=== PATIENT | female | born 1940 | race Caucasian/White ===

== ENCOUNTER 2018-03-25 23:33 | Emergency (ER) | payer MEDICARE ==
[~2018-03-25] VITALS: Ht 160 cm; Wt 61.7 kg
[2018-03-25 23:50] VITALS: BP 151/56
[2018-03-26] MEDS ORDERED: ACETAMINOPHEN ES 500 MG TABLET PO ONE (01:00)
[2018-03-26] MEDS ORDERED: CEPHALEXIN MONOHYDRATE 500 MG CAPSULE PO ONE ×2 (01:00→01:25)
[2018-03-26] MEDS ORDERED: LIDOCAINE VISCOUS 2% UD 15 ML UDC MM ONE (01:00)
[2018-03-26] MEDS ORDERED: LIDOCAINE 2% JEL UROJET 10 ML MM ONE (01:06)
[2018-03-26] MEDS ORDERED: ACETAMINOPHEN ES 500 MG TABLET ONE (01:25)
== END 2018-03-26 02:10 | disposition home or self-care (01) ==
LOC: ER 23:35
DX: S51.811A Laceration without foreign body of right forearm, initial encounter (principal); Z95.9 Presence of cardiac and vascular implant and graft, unspecified; J45.909 Unspecified asthma, uncomplicated; W07.XXXA Fall from chair, initial encounter; Y93.89 Activity, other specified; Y92.89 Other specified places as the place of occurrence of the external cause; Y99.8 Other external cause status
CPT/HCPCS: 99284; A4606; A6402; J3490; Z7610

== ENCOUNTER 2019-05-27 15:14 | Emergency (ER) | payer MEDICARE ==
[~2019-05-27] VITALS: Ht 160 cm; Wt 59.0 kg
[2019-05-27 15:27] VITALS: BP 158/78
--- NOTE | 2019-05-27 15:43 | NUR ---
Patient alert and oriented. Fmaily at the bedside. Noted with left roca skin tear 3x2cm. Minimal drainage of pink and bright red. Prep for cleaning.
--- NOTE | 2019-05-27 16:52 | NUR ---
provided w/ wound care. d/c home in stable condition.
[2019-05-27] MEDS ORDERED: BACITRACIN ZINC OINT PACKET 1 EA PACKET TP ONE (17:00)
== END 2019-05-27 16:54 | disposition home or self-care (01) ==
LOC: ER 15:20
DX: S80.812A Abrasion, left lower leg, initial encounter (principal); S81.802A Unspecified open wound, left lower leg, initial encounter; I10 Essential (primary) hypertension; J45.909 Unspecified asthma, uncomplicated; Z95.5 Presence of coronary angioplasty implant and graft; Z98.890 Other specified postprocedural states; X58.XXXA Exposure to other specified factors, initial encounter; Y93.39 Activity, other involving climbing, rappelling and jumping off; Y92.89 Other specified places as the place of occurrence of the external cause; Y99.8 Other external cause status